=== PATIENT | female | born 1985 | race Asian ===

== ENCOUNTER 2017-04-17 07:34 | Day surgery (SDC) | payer OTHER ==
--- NOTE | 2017-04-16 18:53 | GHP ---
[f rep st] PREOP HISTORY AND PHYSICAL DATE OF ADMISSION: 04/17/2017 HISTORY OF PRESENT ILLNESS: Mrs. Ching Bolivar is a presented on 2016 for her new OB visit. She had uncertain dates by her last menstrual period as it was questionable, some time in the first week in February, estimated at 02/08/17. At that time, she was supposedly 8 weeks 4 days by an estimated LMP. A bedside ultrasound was done which revealed a CRL of 0.4 cm which was consistent with 6 weeks 1 day. No cardiac activity was noted at that time. We discussed the results of the ultrasound via a [employer] student accounts manager. Options were given to the patient at that time. She desired to repeat ultrasound in 1 week. The patient presented to the office on 2016. A repeat ultrasound was done which confirmed a CRL that was consistent with 6 weeks and 1 day, which indicated no growth from previous ultrasound. No cardiac activity was noted at that time. We discussed options for missed AB which included medical management or suction D&C. The patient desired D&C at this time. OB HISTORY: Primary section in December of 2010 for a male infant, weight was 6 pounds. The baby was delivered in [place]. She had a in 2011 which was an elective termination and then the current , which is a missed AB. KNIFE EDGER HISTORY: She denies any history of abnormal Paps or procedures on her cervix. She denies any history of STDs. She reports regular menses every month. PAST MEDICAL HISTORY: Noncontributory. PAST SURGICAL HISTORY: in 2010. Elective termination in 2011. SOCIAL HISTORY: She denies any tobacco, alcohol or drug use. She is sexually active with 1 partner. She denies any history of physical or sexual abuse. MEDICATIONS: vitamin. ALLERGIES: No known drug allergies. REVIEW OF SYSTEMS: CONSTITUTIONAL: Negative for fevers and chills. HEENT: Negative for congestion and sore throat. EYES: Negative for visual disturbances/changes. RESPIRATORY: Negative for cough, shortness of breath, wheezing. CARDIOVASCULAR: Negative for chest pain, palpitations and lower extremity edema. GASTROINTESTINAL: Negative abdominal pain. Negative for nausea, vomiting, diarrhea and constipation. GENITOURINARY: Negative for difficulty urinating, dysuria, hematuria, vaginal bleeding. MUSCULOSKELETAL: Negative for back pain. SKIN: Negative for rash. NEUROLOGIC: Negative for dizziness, headache, seizures and loss of consciousness. PSYCHIATRIC/BEHAVIORAL: Negative for dysphoric mood, anxiety, suicidal or homicidal ideations. LABS: Her blood type/ABORh is AB positive. Antibody screen is negative. PHYSICAL EXAMINATION: CONSTITUTIONAL: Alert and oriented x3, appears well-developed, well-nourished. HEENT: Head is normocephalic, atraumatic. EOM normal. NECK: Supple. CARDIOVASCULAR: Regular rate and rhythm. No murmurs noted. PULMONARY/CHEST: Effort is normal. Clear to auscultation bilaterally. ABDOMEN: Soft, nontender, nondistended. MUSCULOSKELETAL: No edema, no tenderness noted. Negative Homans' sign. NEUROLOGIC: Alert and oriented x3, grossly normal. SKIN: Warm, dry and intact. No rashes noted. PSYCHIATRIC: Normal mood and affect. ASSESSMENT: 31-year-old with MAB, measuring 6 weeks 1 day. Blood type AB positive. PLAN: Suction D&C Anora testing desired. Dr Evans aware and agrees with plan of care. /[id number]/MODL MTDD
[2017-04-17] MEDS ORDERED: DOXYCYCLINE HYCLATE 100 MG CAP/TAB PO ONE (09:15)
[2017-04-17] MEDS ORDERED: MISOPROSTOL 200 MCG TAB ONE (09:17)
[2017-04-17] MEDS ORDERED: PROPOFOL 200 MG/20 ML VIAL ONE (09:21)
[2017-04-17] MEDS ORDERED: fentaNYL 100 MCG/2 ML INJ ONE (09:23)
[2017-04-17] MEDS ORDERED: MIDAZOLAM 2 MG/2 ML VIAL ONE (09:24)
--- NOTE | 2017-04-17 09:32 | PDANEPAE ---
ANE History of Present Illness 31 year old woman for D and C for missed AB. Otherwise healthy. ANE Past Medical History - Cardiovascular History Hx Hypertension: No Hx Arrhythmias: No Hx Chest Pain: No Hx Coronary Artery / Peripheral Vascular Disease: No Hx CHF / Valvular Disease: No Hx Palpitations: No - Pulmonary History Hx COPD: No Hx Asthma/Reactive Airway Disease: No Hx Recent Upper Respiratory Infection: No Hx Oxygen in Use at Home: No Hx Sleep Apnea: No ANE Review of Systems Review of Systems: ANE Patient History - Allergies Allergies/Adverse Reactions: No Allergies Allergy (Verified 04/17/17 08:29) - Smoking Hx Smoking Status: Never smoked ANE Labs/Vital Signs - Labs Result Diagrams: 04/17/17 08:31 - Vital Signs Height: 154 cm Weight: 63.503 kg ANE Physical Exam - Airway Mallampati Score: Class 2 Mouth exam: normal dental/mouth exam - Pulmonary Pulmonary: no respiratory distress - Cardiovascular Cardiovascular: regular rate and rhythym - ASA Status ASA Status: I ANE Anesthesia Plan Anesthesia Plan: GA w LMA
[2017-04-17] MEDS ORDERED: DEXAMETHASONE 4 MG/ML VIAL IVP PRN (10:25)
[2017-04-17] MEDS ORDERED: PROMETHAZINE HCL 25 MG/ML INJ IVP PRN (10:25)
[2017-04-17] MEDS ORDERED: OXYCODONE/APAP 5/325 TAB PO PRN (10:25)
[2017-04-17] MEDS ORDERED: METOCLOPRAMIDE 10 MG/2 ML VIAL IVP PRN (10:25)
[2017-04-17] MEDS ORDERED: MEPERIDINE 25 MG/ML SYR IVP PRN (10:25)
[2017-04-17] MEDS ORDERED: fentaNYL 100 MCG/2 ML INJ IVP PRN (10:25)
[2017-04-17] MEDS ORDERED: LABETALOL HCL 50 MG/10 ML SYR IVP PRN (10:25)
[2017-04-17] MEDS ORDERED: LR 500 ML IV PRN (10:25)
[2017-04-17] MEDS ORDERED: ACETAMINOPHEN 500 MG TAB PO PRN ×2 (10:25→12:02)
[2017-04-17] MEDS ORDERED: ALBUTEROL 3 ML DEYVIAL IH PRN (10:25)
[2017-04-17] MEDS ORDERED: NALOXONE HCL 0.4 MG/ML INJ IVP PRN (10:25)
[2017-04-17] MEDS ORDERED: ONDANSETRON 4 MG/2 ML VIAL IVP PRN (10:25)
[2017-04-17] MEDS ORDERED: HYDROCODONE/APAP 5/325 TAB PO PRN (10:25)
[2017-04-17] MEDS ORDERED: HYDROmorphONE/DILAUDID 1 MG/ML INJ IVP PRN (10:25)
--- NOTE | 2017-04-17 11:17 | GOP ---
[f rep st] OPERATIVE REPORT DATE OF OPERATION: 04/17/2017 SURGEON: Sheila Evans MD ANESTHESIA: General anesthesia. ANESTHESIOLOGIST: Maggie Kumar MD. PREOPERATIVE DIAGNOSIS: Intrauterine at 8 weeks by dates, 6 weeks by size, with missed abo rtion. POSTOPERATIVE DIAGNOSIS: Intrauterine at 8 weeks by dates, 6 weeks by size, with missed ab ortion. PROCEDURE PERFORMED: Suction dilation and curettage. FINDINGS: INDICATIONS: The patient is a G3, P1-0-0-1 who had a questionable last menstrual period the of February. She presented on 04/08/2017 for a new OB visit. At that point, she had an ultrasound that revealed a crown-rump length of 6 weeks 1 day with no cardiac activity and was presumed to be a possible missed . The patient wished to have expectant management and a repeat ultrasound 1 week later. This was performed, and there was no change. Ultrasound confirmed crown-rump length c onsistent with 6 weeks 1 day and no cardiac activity, and the diagnosis of missed was made. Patient was given treatment options of have expectant management versus surgical management ve rsus medical management. The patient chose to have surgical management with a suction dilation and c urettage. She was consented for the procedure. She understood the risks and benefits; the risks inc luding bleeding, infection, damage to the uterus including possible risk of perforation, and damage t o other organs if perforation were to occur, incomplete removal of all the tissue with need for spont aneous expulsion and/or repeat procedure, and compromise of future fertility. She understood these r isks and benefits and agreed to proceed. DESCRIPTION OF PROCEDURE: Patient was taken to the operating room where she was placed under general anesthesia without difficulty. She was prepped and draped in the dorsal lithotomy position. After a WHO time-out was performed, an open-sided speculum was placed in the vagina, and a Qiu tenaculum was used to grasp the anterior lip of the cervix. The uterus sounded to approximately 8 cm. The ce rvix was then dilated with Smiley dilators to a #8. A #8 curved suction curette was gently advanced f rom the cervix to the fundus, and the suction was applied. Products of conception tissue were remove d with several passages of the suction device. Sharp curettage was then performed in a clockwise fas hion until a gritty texture was palpated throughout the entire endometrium. A final pass of the suct ion device revealed good hemostasis and no further tissue. The tenaculum was removed. The speculum was removed. A bedside , transvaginal ultrasound was performed, and there was no further tissue in t he endometrium. There were small areas of blood. Patient tolerated the procedure well. Sponge, lap , needle, and instrument counts were correct x2. Patient went to the recovery room in good condition . Estimated blood loss for the procedure was less than 50 cc. Fluid replacement 500 cc. Pathologic specimen will be products of conception. /[id number]/MODL
== END 2017-04-17 12:35 | disposition home or self-care (01) ==
LOC: FSGY 07:34 → FOBOP 12:35
PROVIDERS: ATTEND Obstetrics & Gynecology
PROC: 10D17ZZ Extraction of Products of Conception, Retained, Via Natural or Artificial Opening (ICD-10-PCS; principal; 2017-04-17)
DX: O02.1 Missed abortion (principal); Z13.79 Encounter for other screening for genetic and chromosomal anomalies
CPT/HCPCS: J2250; J2704; J3010